=== PATIENT | female | born 1985 | race Caucasian/White ===

== ENCOUNTER → 2022-05-16 | Outpatient (CLI) | payer OTHER | LOC: MC.RAD 13:50 | DX: N60.01 Solitary cyst of right breast (principal); N63.21 Unspecified lump in the left breast, upper outer quadrant; N64.89 Other specified disorders of breast ==

== ENCOUNTER → 2022-05-23 | Outpatient (CLI) | payer OTHER | LOC: MC.RAD 07:54 | DX: N60.02 Solitary cyst of left breast (principal) ==